=== PATIENT | male | born 1985 | race Caucasian/White ===

== ENCOUNTER 2017-02-17 09:31 | Inpatient (IN) | payer MEDICAID ==
[2017-02-17 10:11] VITALS: BP 108/45
[2017-02-17] MEDS: Sodium Chloride 0.9% 1,000 ML IV SCH (11:29)
[2017-02-17] MEDS ORDERED: METRONIDAZOLE IV SCH (13:00)
[2017-02-17] MEDS ORDERED: SODIUM CHLORIDE IV SCH (13:00)
[2017-02-17] MEDS ORDERED: [UNRECOGNIZED DRUG - OTHER] IV SCH (13:00)
[2017-02-17] MEDS ORDERED: Bupivacaine 0.5% W/Ep 10 mL Vial INJ ONE (13:30)
[2017-02-17] MEDS ORDERED: Meperidine 25 mg/mL 1mL Syr IVP PRN (13:33)
[2017-02-17] MEDS ORDERED: Lactated Ringer 1,000 ML IV SCH (13:45)
[2017-02-17] MEDS ORDERED: Midazolam 1mg/ml 2 ml vial IV ONE (13:49)
[2017-02-17] MEDS ORDERED: Meperidine 50 mg/mL 1mL Syr ONE (13:50)
[2017-02-17] MEDS ORDERED: cefTRIAXone 1 GM in 0.9% NS 50 ML IV SCH (14:00)
[2017-02-17] MEDS ORDERED: Neostigmine 10mg/10mL Vial ONE (14:13)
--- NOTE | 2017-02-17 15:07 | History & Physical ---
ADMIT DATE: 02/17/2017 CHIEF COMPLAINT: Abdominal pain. HISTORY OF PRESENT ILLNESS: This is the case of 31-year-old male who referred 5 days ago he started with abdominal pain. The pain is sharp, started in the right upper side with nausea, pain got worse after he ate. He referred this pain 6 months ago and was told that he had cholecystitis and cholelithiasis. PAST MEDICAL HISTORY: Unremarkable. PAST SURGICAL HISTORY: None. SOCIAL HISTORY: The patient referred that he smokes and drinks occasionally. He use marijuana once a day. FAMILY HISTORY: The patient referred both parents had diabetes mellitus. MEDICATIONS: Reviewed. ALLERGIES: No known allergies. REVIEW OF SYSTEMS: LUNGS: Unremarkable. HEART: The patient denies chest pain. ABDOMEN: The patient referred abdominal pain. EXTREMITIES: Unremarkable. NEUROLOGICAL: Unremarkable. PHYSICAL EXAMINATION: GENERAL: Does reveal a fairly nourished and developed male, awake, alert, in no acute distress. LUNGS: Bilateral air entry. HEART: Regular rate and rhythm. ABDOMEN: Soft and tender on palpation in the right upper quadrant. Bear positive. Bowel sound present. EXTREMITIES: No edema. NEUROLOGICAL: The patient is awake, alert, in no acute distress. Nerves 2-12 grossly intact. IMPRESSION: Cholecystitis and cholelithiasis. PLAN: 1. The patient will be admitted in the medical surgical floor. 2. NPO. 3. Continue on ceftriaxone and metronidazole. 4. Consult with Dr. Casiano for surgery and consult with Dr. Braga, GI. 5. IV normal saline. 6. CBC, CMP at a.m. 7. Morphine for pain control. JOB# [id number]
--- NOTE | 2017-02-17 15:42 | Consultation ---
DATE OF CONSULTATION: 02/17/2017 REFERRING PHYSICIAN: Dr. Tomlinson. REASON FOR CONSULTATION: Gallstones. Thank you for referring this patient to me. HISTORY OF PRESENT ILLNESS: A 31-year-old male who went to [facility] yesterday because of abdominal pain. He was diagnosed about 6 months ago with gallstones. On this admission to [facility], the patient had ultrasound, which showed gallstones again. The laboratory studies, CBC and chemistry including liver function tests are within normal limits. PAST MEDICAL HISTORY: Previous surgery. The patient admits to smoking including marijuana. He also drinks and apparently his tapered down on that. PHYSICAL EXAMINATION: The patient is tender in right upper quadrant. No scar from any previous surgery. IMPRESSION: Calculus cholecystitis. PLAN: Laparoscopic versus open cholecystectomy. Informed consent discussed with the patient regarding possible complications including but not limited to bleeding, postoperative infection, hernias, adhesions that might cause bowel obstruction and others associated with that, anesthesia complications and injury to the common duct, which might cause bile leakage and subsequent procedures to correct this situation as it occurs. The patient understands and signed consent for the procedure. JOB# [id number]
[2017-02-17] MEDS: Morphine Sulfate 4 mg/mL 1mL Syr IV PRN ×2 (16:25→21:57)
[2017-02-17] MEDS: metroNIDAZOLE 500mg/NS 100mL 500 MG/100 ML BAG IV SCH ×2 (16:28→21:57)
[2017-02-18] MEDS: Sodium Chloride 0.9% 1,000 ML IV SCH (00:25)
--- NOTE | 2017-02-18 04:57 | Consultation ---
DATE OF CONSULTATION: 02/17/2017 REQUESTING PHYSICIAN: Dr. Keshav Tomlinson. REASON FOR CONSULTATION: Abdominal pain. HISTORY OF PRESENT ILLNESS: A 31-year-old male with 5 days of epigastric and right upper quadrant pain, seen initially at [facility]. There, he had initial evaluation, which revealed symptomatic gallstones and gallbladder wall thickening on ultrasound. Labs are essentially unremarkable. The patient was transferred here for acute cholecystitis. He underwent an uneventful laparoscopic cholecystectomy by Dr. Casiano. He is currently doing better. PAST MEDICAL HISTORY: As above. MEDICATIONS: Here are Rocephin, Flagyl, morphine, Zofran, and IV fluids. ALLERGIES: None. SOCIAL HISTORY: Occasional tobacco. Occasional alcohol. No drugs. FAMILY HISTORY: Noncontributory. REVIEW OF SYSTEMS: Negative. PHYSICAL EXAMINATION: VITAL SIGNS: Temperature of 96.8, blood pressure is 108/45, pulse is 72, respirations 18, O2 sat is 99% on room air. GENERAL: The patient is well-developed, well-nourished male, in no acute distress. HEENT: Sclerae nonicteric. Oropharynx is clear. CARDIOVASCULAR: Regular rate and rhythm. LUNGS: Clear to auscultation bilaterally. ABDOMEN: Soft, slightly distended, no active bowel sounds. There is laparoscopic wound dressings noted. No drains are noted. EXTREMITIES: No clubbing, cyanosis, or edema. RECTAL: Deferred. LABORATORY DATA AND IMAGING: At [facility], complete blood count and chemistries were unremarkable. Ultrasound showed gallstones with gallbladder wall thickening. IMPRESSION: Abdominal pain secondary to acute cholecystitis versus symptomatic gallstones, status post cholecystectomy earlier today. RECOMMENDATIONS: 1. Postoperative care as per surgeon and hospitalist. 2. Monitor labs. 3. No need for further GI endoscopic workup at this point. Thank you, Dr. Tomlinson, for involving us in the care of your patient. If you have any further questions, please call us. JOB# [id number] MTDD
--- NOTE | 2017-02-18 05:31 | Admit Criteria Form ---
Admit Criteria Forms - Admit Criteria Diagnosis: ABDOMINAL PAIN Clinical Indications for Admission to Inpatient Care (Place 'X' for any and all applicable criteria): Admission is indicated for ANY ONE of the following(1)(2)(3)(4)(5): [X]I. Inpatient admission required rather than observation care (Also use Abdominal Pain: Observation Care, as appropriate) because of ANY ONE of the following: [X ]a) Severe pain requiring acute inpatient management [X ]b) Identification of etiology/finding that requires inpatient care (eg, aortic dissection, free air) [ ]c) Absent bowel sounds with complete ileus(6) [ ]d) Suspected toxic megacolon [ ]e) Severe electrolyte abnormalities requiring inpatient care [ ]f) High fever or infection requiring inpatient admission as indicated by ANY ONE of following(7)(8): [ ] i) Appropriate outpatient or observational care antimicrobial treatment unavailable, not effective, or not feasible [ ] ii) Documented bacteremia [ ] iii) Temperature > 104.9 degrees F (oral) [ ] iv) T >103.1 F (oral) or < 96.8 F(rectal) that does not respond to all emergency treatment measures [ ]g) Signs of intestinal obstruction [B] [ ]h) Hemodynamic instability [ ]i) IV fluid to replace significant ongoing losses (greater than 3 L/m2 per day) (12)(13) [ ]j) Percutaneous or open drainage (eg, abscess, biliary tract ) procedures [ ]k) Parenteral nutrition regimen that must be implemented on inpatient basis [ ]l) Other condition,treatment or monitoring requiring inpatient admission. [ ]II. Peritoneal signs present [ ]III. Surgery needed that cannot be performed on an ambulatory basis. [ ]IV. Evaluation requires patient to not eat or drink for extended period ( eg, more than 24 hours). [ ]V. Contraindications and/or Inappropriate clinical situations for Observational Care in patients with abdominal pain, when ANY ONE of the following is required: [ ]a) Thorough evaluation is required to prevent catastrophic events due to delays in diagnosing (e.g.Mesenteric ischemia) 1,3 [ ]b) Patient with severe pathology or with chronic symptoms unlikely to improve in the ED stay (3) [ ]. General contraindications and/or Inappropriate clinical situations for Observational Care in patients with abdominal pain, when ANY ONE of the following is required: [ ]a) Prediction of prolongation of LOS based on ANY ONE of the following may be considered as a contraindication for observational care 2, 3, 4, 5, 6, 7, 8, 9, 10, 11 [ ]i) Age > 65 yrs. [ ]ii) Patient arriving by ambulance [ ]iii) Patient with high acuity [ ]iv) Patient requiring vital sign monitoring [ ]v) Patient on IV medication [ ]b) Systolic blood pressures 180mmHg 3,12 [ ]c) Patient with altered mental status including delirium and other alteration of consciousness, (3) [ ]d) Patient whose discharge disposition will be to a group home home or rehabilitation home should not be managed in Emergency Department Observation Unit. CMS rule requires 3 days hospital stay before such placement.3,13 [ ]e) Patient with failure to thrive due to broad array of etiologies 3,16,17 [ ]f) Inability to ambulate 3,14 Extended stay beyond goal length of stay may be needed for(2)(3): [ ]a) Persistent abdominal pain with suspected intra-abdominal process [ ]b) Diagnosed condition requiring continued stay (e.g., pancreatitis, complicated diverticulitis) [ ]c) Surgery (e.g., colectomy) The original [employer] content created by [employer] has been revised. The portions of the content which have been revised are identified through the use of italic text or in bold, and [facility] [employer] [facility] has neither reviewed nor approved the modified material.All other unmodified content is copyright [employer]. Please see references footnoted in the original [facility] edition 2016
[2017-02-18 05:32] LABS: % BASOPHILS 0.6 % (0.0-2.0); % EOSINOPHILS 5.1 % (0.0-5.0); % LYMPHOCYTES 15.2 % (20.0-50.0); % MONOCYTES 6.3 % (2.0-10.0); % NEUTROPHILS 72.8 % (40.0-80.0); HEMATOCRIT 40.3 % (39.0-49.0); HEMOGLOBIN 14.2 gm/dL (13.2-17.3); MEAN CELL VOLUME 84.5 fl (80-99); MEAN CORPUSCULAR HEMOGLOBIN 29.7 pg (26.0-30.0); MEAN CORPUSCULAR HGB CONC 35.1 pg (28.0-36.0); MEAN PLATELET VOLUME 8.3 fl; NEUTROPHILE ABSOLUTE 6.6 Th/cmm (1.8-8.0); PLATELET COUNT 190 Th/cmm (150-400); RED BLOOD COUNT 4.77 Mil/cmm (4.30-5.70); RED CELL DISTRIBUTION WIDTH 11.7 % (11.5-20.0); WHITE BLOOD COUNT 9.2 Th/cmm (4.8-10.8)
[2017-02-18 05:41] LABS: ALB/GLOB RATIO 1.5 (1.0-1.8); ALKALINE PHOSPHATASE 81 U/L (34-104); ANION GAP 2.5 (7.0-16.0); BILIRUBIN,TOTAL 0.7 mg/dL (0.3-1.0); BUN - UREA NITROGEN 10 mg/dL (7-25); BUN/CREATININE RATIO 12.5; CALCIUM SERUM 8.9 mg/dL (8.6-10.3); CARBON DIOXIDE 29.4 mEq/L (21.0-31.0); CHLORIDE 104 mEq/L (98-107); CREATININE - SERUM 0.8 mg/dL (0.7-1.3); GLUCOSE 102 mg/dL (70-105); POTASSIUM SERUM 3.9 mEq/L (3.5-5.1); SGOT 23 U/L (13-39); SGPT/ALT 35 U/L (7-52); SODIUM SERUM 132 mEq/L (136-145)
[2017-02-18] MEDS: metroNIDAZOLE 500mg/NS 100mL 500 MG/100 ML BAG IV SCH (05:50)
--- NOTE | 2017-02-18 08:34 | General Progress Note ---
Subjective - Review of Systems Service Date: 02/18/17 Events since last encounter: labs normal incision dressings clean may DC low fat diet for 30 days may shower to my office 10 days, call for appt Objective - Results Result Diagrams: 02/18/17 04:57 02/18/17 04:57 Recent Labs: Laboratory Last Values WBC 9.2 Th/cmm (4.8-10.8) 02/18/17 04:57 RBC 4.77 Mil/cmm (4.30-5.70) 02/18/17 04:57 Hgb 14.2 gm/dL (13.2-17.3) 02/18/17 04:57 Hct 40.3 % (39.0-49.0) 02/18/17 04:57 MCV 84.5 fl (80-99) 02/18/17 04:57 MCH 29.7 pg (26.0-30.0) 02/18/17 04:57 MCHC Differential 35.1 pg (28.0-36.0) 02/18/17 04:57 RDW 11.7 % (11.5-20.0) 02/18/17 04:57 Plt Count 190 Th/cmm (150-400) 02/18/17 04:57 MPV 8.3 fl 02/18/17 04:57 Neutrophils % 72.8 % (40.0-80.0) 02/18/17 04:57 Lymphocytes % 15.2 % (20.0-50.0) L 02/18/17 04:57 Monocytes % 6.3 % (2.0-10.0) 02/18/17 04:57 Eosinophils % 5.1 % (0.0-5.0) H 02/18/17 04:57 Basophils % 0.6 % (0.0-2.0) 02/18/17 04:57 Sodium 132 mEq/L (136-145) L 02/18/17 04:57 Potassium 3.9 mEq/L (3.5-5.1) 02/18/17 04:57 Chloride 104 mEq/L (98-107) 02/18/17 04:57 Carbon Dioxide 29.4 mEq/L (21.0-31.0) 02/18/17 04:57 Anion Gap 2.5 (7.0-16.0) L 02/18/17 04:57 BUN 10 mg/dL (7-25) 02/18/17 04:57 Creatinine 0.8 mg/dL (0.7-1.3) 02/18/17 04:57 Est GFR ( Amer) > 60.0 ml/min (>90) 02/18/17 04:57 Est GFR (Non-Af Amer) > 60.0 ml/min 02/18/17 04:57 BUN/Creatinine Ratio 12.5 02/18/17 04:57 Glucose 102 mg/dL (70-105) 02/18/17 04:57 Calcium 8.9 mg/dL (8.6-10.3) 02/18/17 04:57 Total Bilirubin 0.7 mg/dL (0.3-1.0) 02/18/17 04:57 AST 23 U/L (13-39) 02/18/17 04:57 ALT 35 U/L (7-52) 02/18/17 04:57 Alkaline Phosphatase 81 U/L (34-104) 02/18/17 04:57 Total Protein 6.4 gm/dL (6.0-8.3) 02/18/17 04:57 Albumin 3.8 gm/dL (4.2-5.5) L 02/18/17 04:57 Globulin 2.6 gm/dL 02/18/17 04:57 Albumin/Globulin Ratio 1.5 (1.0-1.8) 02/18/17 04:57 - Physical Exam Vitals and I&O: Vital Signs Temp 97.5 F 02/18/17 04:00 Pulse 53 02/18/17 04:00 Resp 18 02/18/17 04:00 BP 127/74 02/18/17 04:00 Pulse Ox 99 02/18/17 04:00 Intake & Output 02/17/17 02/18/17 02/18/17 18:59 06:59 18:59 Intake Total 100 1100 Balance 100 1100 Weight (lbs) 79.379 kg Intake: Intake, IV Amount 100 1100 Sodium Chloride 0.9% 1, 1000 000 ml @ 100 mls/hr IV . Q10H [facility] Rx#:[id number] metroNIDAZOLE 500mg/NS 100 100 100mL 500 mg In 100 ml @ 100 mls/hr IV Q8HR [facility] Rx #:[id number] Active Medications: Current Medications Sodium Chloride (Nacl 0.9%) 1,000 mls @ 100 mls/hr IV .Q10H [facility] Stop: 04/18/17 10:37 Last Admin: 02/18/17 00:25 Dose: 100 mls/hr Metronidazole (Flagyl) 500 mg in 100 mls @ 100 mls/hr IV Q8HR [facility] Stop: 04/18/17 13:59 Last Admin: 02/18/17 05:50 Dose: 100 mls/hr Ceftriaxone Sodium 1 gm/ (Sodium Chloride) 50 mls @ 100 mls/hr IV Q24HR [facility] Stop: 04/19/17 08:59 Morphine Sulfate (Morphine) 4 mg IV Q4HR PRN PRN Reason: Pain (Severe) Stop: 04/18/17 15:59 Last Admin: 02/17/17 21:57 Dose: 4 mg Ondansetron HCl (Zofran) 4 mg IV Q4HR PRN PRN Reason: Nausea / Vomiting Stop: 04/18/17 15:59
[2017-02-18] MEDS ORDERED: cefTRIAXone 1 GM in 0.9% NS 50 ML IV SCH (09:00)
--- NOTE | 2017-02-18 12:26 | General Progress Note ---
Subjective - Review of Systems Service Date: 02/18/17 Subjective: I am fine Objective - Results Result Diagrams: 02/18/17 04:57 02/18/17 04:57 Recent Labs: Laboratory Last Values WBC 9.2 Th/cmm (4.8-10.8) 02/18/17 04:57 RBC 4.77 Mil/cmm (4.30-5.70) 02/18/17 04:57 Hgb 14.2 gm/dL (13.2-17.3) 02/18/17 04:57 Hct 40.3 % (39.0-49.0) 02/18/17 04:57 MCV 84.5 fl (80-99) 02/18/17 04:57 MCH 29.7 pg (26.0-30.0) 02/18/17 04:57 MCHC Differential 35.1 pg (28.0-36.0) 02/18/17 04:57 RDW 11.7 % (11.5-20.0) 02/18/17 04:57 Plt Count 190 Th/cmm (150-400) 02/18/17 04:57 MPV 8.3 fl 02/18/17 04:57 Neutrophils % 72.8 % (40.0-80.0) 02/18/17 04:57 Lymphocytes % 15.2 % (20.0-50.0) L 02/18/17 04:57 Monocytes % 6.3 % (2.0-10.0) 02/18/17 04:57 Eosinophils % 5.1 % (0.0-5.0) H 02/18/17 04:57 Basophils % 0.6 % (0.0-2.0) 02/18/17 04:57 Sodium 132 mEq/L (136-145) L 02/18/17 04:57 Potassium 3.9 mEq/L (3.5-5.1) 02/18/17 04:57 Chloride 104 mEq/L (98-107) 02/18/17 04:57 Carbon Dioxide 29.4 mEq/L (21.0-31.0) 02/18/17 04:57 Anion Gap 2.5 (7.0-16.0) L 02/18/17 04:57 BUN 10 mg/dL (7-25) 02/18/17 04:57 Creatinine 0.8 mg/dL (0.7-1.3) 02/18/17 04:57 Est GFR ( Amer) > 60.0 ml/min (>90) 02/18/17 04:57 Est GFR (Non-Af Amer) > 60.0 ml/min 02/18/17 04:57 BUN/Creatinine Ratio 12.5 02/18/17 04:57 Glucose 102 mg/dL (70-105) 02/18/17 04:57 Calcium 8.9 mg/dL (8.6-10.3) 02/18/17 04:57 Total Bilirubin 0.7 mg/dL (0.3-1.0) 02/18/17 04:57 AST 23 U/L (13-39) 02/18/17 04:57 ALT 35 U/L (7-52) 02/18/17 04:57 Alkaline Phosphatase 81 U/L (34-104) 02/18/17 04:57 Total Protein 6.4 gm/dL (6.0-8.3) 02/18/17 04:57 Albumin 3.8 gm/dL (4.2-5.5) L 02/18/17 04:57 Globulin 2.6 gm/dL 02/18/17 04:57 Albumin/Globulin Ratio 1.5 (1.0-1.8) 02/18/17 04:57 - Physical Exam Vitals and I&O: Vital Signs Temp 99.1 F 02/18/17 08:00 Pulse 58 02/18/17 08:00 Resp 18 02/18/17 08:00 BP 134/75 02/18/17 08:00 Pulse Ox 99 02/18/17 08:00 Intake & Output 02/17/17 02/18/17 02/18/17 18:59 06:59 18:59 Intake Total 100 1100 Balance 100 1100 Weight (lbs) 79.379 kg Intake: Intake, IV Amount 100 1100 Sodium Chloride 0.9% 1, 1000 000 ml @ 100 mls/hr IV . Q10H [facility] Rx#:[id number] metroNIDAZOLE 500mg/NS 100 100 100mL 500 mg In 100 ml @ 100 mls/hr IV Q8HR [facility] Rx #:[id number] Active Medications: Current Medications Sodium Chloride (Nacl 0.9%) 1,000 mls @ 100 mls/hr IV .Q10H [facility] Stop: 04/18/17 10:37 Last Admin: 02/18/17 00:25 Dose: 100 mls/hr Metronidazole (Flagyl) 500 mg in 100 mls @ 100 mls/hr IV Q8HR [facility] Stop: 04/18/17 13:59 Last Admin: 02/18/17 05:50 Dose: 100 mls/hr Ceftriaxone Sodium 1 gm/ (Sodium Chloride) 50 mls @ 100 mls/hr IV Q24HR [facility] Stop: 04/19/17 08:59 Last Admin: 02/18/17 09:33 Dose: 100 mls/hr Morphine Sulfate (Morphine) 4 mg IV Q4HR PRN PRN Reason: Pain (Severe) Stop: 04/18/17 15:59 Last Admin: 02/17/17 21:57 Dose: 4 mg Ondansetron HCl (Zofran) 4 mg IV Q4HR PRN PRN Reason: Nausea / Vomiting Stop: 04/18/17 15:59 General: Alert, Oriented x3, Cooperative, No acute distress HEENT: Atraumatic Neck: Supple Cardiovascular: Regular rate Lungs: Clear to auscultation Abdomen: Bowel sounds, Soft, Other (Surgical wound clean) Neurological: Normal gait Skin: Other (Warm and dry) Psych/Mental Status: Mental status NL Assessment/Plan - Assessment Assessment: Patient is awake, calm in no acute distress, Dx: S/P cholecystectomy - Plan Plan: Patient will be discharge.
--- NOTE | 2017-02-18 13:27 | Operative Report ---
DATE OF SURGERY: 02/18/2017 PREOPERATIVE DIAGNOSIS: Calculous cholecystitis. POSTOPERATIVE DIAGNOSIS: Calculous cholecystitis. OPERATION DONE: Laparoscopic cholecystectomy. SURGEON: Oh Saba MD ANESTHESIA: General. ANESTHESIOLOGIST: Mckenna Parker M.D. ESTIMATED BLOOD LOSS: 10 mL. OPERATIVE FINDINGS: Markedly thickened gallbladder wall with large stone and small ones. Informed consent discussed with the patient prior to surgery including possible complications. This includes but not limited to bleeding, infection, ____ bile leakage, those associated with the anesthesia. DESCRIPTION OF PROCEDURE: The patient was given general anesthesia. The abdomen was prepped with ChloraPrep and draped in appropriate manner. An incision was made in the infraumbilical area and the Veress needle was inserted. Insufflation of CO2 was carried successfully. A 10 mm trocar was placed through this incision and the scope was introduced. Another 10 mm trocar was placed in the upper abdomen and two 5 mm trocars were placed in the right flank. The operating table is elevated at the head and turned to the left side. The fundus and infundibulum of the gallbladder was grasped with some difficulty because of the thickened wall. The infundibulum was stripped off soft tissues until the cystic duct was identified. These were clipped 3 times distally and once proximally and divided. Cystic artery was next clipped and divided. Cautery dissection was carried out until the gallbladder was removed completely. It was removed with an Endobag. Saline irrigation was done and this confirmed good hemostasis. All fluid was aspirated. Trocars were removed and the trocar sites were injected with 0.5% Marcaine with epinephrine. The incision was closed with anson. The patient tolerated the procedure well. JOB# [id number]
--- NOTE | 2017-02-19 10:22 | Pathology Report ---
[id number] Collection date: 02/17/2017 Surgeon: Dr. Zacarias Casiano Specimen Description: Gallbladder Gross Description: Received in formalin is an 8.0 x 3.0 x 2.5 cm gallbladder with a smooth rizo-ram outer surface. Opening the gallbladder reveals an intact green mucosa with gallbladder wall ranging from 0.2 to 0.5 cm in thickness. There are multiple dark green gallstones identified measuring up to 2.4 cm in greatest dimension. Microfabrication Engineer Manager sections are submitted in one cassette. Gross Pathologic Diagnosis: Cholelithiasis, gallbladder. Microscopic Description: The histologic sections show gallbladder wall and mucosa with chronic inflammation present consisting of lymphocytes and plasma cells. Diagnosis: Chronic cholecystitis, gallbladder. [facility]# [id number] [facility]
== END 2017-02-18 14:30 | disposition home or self-care (01) | DRG 263 ==
LOC: MSI 09:31
PROVIDERS: ADMIT General Practice; ATTEND General Practice
PROC: 0FT44ZZ Resection of Gallbladder, Percutaneous Endoscopic Approach (ICD-10-PCS; principal; 2017-02-18)
DX: K80.00 Calculus of gallbladder with acute cholecystitis without obstruction (principal); E87.1 Hypo-osmolality and hyponatremia; F17.210 Nicotine dependence, cigarettes, uncomplicated; F12.90 Cannabis use, unspecified, uncomplicated; Z79.899 Other long term (current) drug therapy
CPT/HCPCS: 36415-UA; 80053-TC; 85025-TC; 88304-TC; 90799; 96372; J0690; J0696; J2001; J2250; J2704; J2710; J7030; X6024; X6258; Z7610